=== PATIENT | female | born 1960 | race Native Hawaiian/Other Pacific Islander ===

== ENCOUNTER 2018-10-15 16:14 | Observation (INO) | payer MEDICAID ==
--- NOTE | 2018-10-15 17:10 | C.PDOC ---
History Of Present Illness 58 year old female with PMHx of hypertension and coronary stents presents to the ED complaining of chest pain for several months but worse for the past 3 weeks. Associated symptoms include shortness of breath. Describes pain as sharp. Reports she took Aspirin today. States she ran out of her medications 2 days ago. Time Seen by Provider: 10/15/18 16:46 Chief Complaint (Nursing): Chest Pain History Per: Patient History/Exam Limitations: no limitations Onset/Duration Of Symptoms: Days Current Symptoms Are (Timing): Still Present Quality: Sharp Past Medical History Reviewed: Historical Data, Nursing Documentation, Vital Signs Vital Signs: Last Vital Signs Temp 98.1 F 10/15/18 16:27 Pulse 76 10/15/18 16:27 Resp 16 10/15/18 16:27 BP 144/82 10/15/18 16:27 Pulse Ox 98 10/15/18 16:27 - Medical History PMH: HTN Surgical History: Coronary Stent Family History: States: No Known Family Hx - Social History Hx Alcohol Use: No Hx Substance Use: No - Immunization History Hx Tetanus Toxoid Vaccination: No Review Of Systems Except As Marked, All Systems Reviewed And Found Negative. Cardiovascular: Positive for: Chest Pain Respiratory: Positive for: Shortness of Breath Physical Exam - Physical Exam Appears: Non-toxic, No Acute Distress Skin: Warm, Dry, No Rash Head: Normacephalic Eye(s): bilateral: Normal Inspection, PERRL, EOMI Neck: Supple Cardiovascular: Rhythm Regular Respiratory: Normal Breath Sounds, No Rales, No Rhonchi, No Wheezing Gastrointestinal/Abdominal: Soft, No Tenderness Extremity: No Pedal Edema Extremity: Bilateral: Atraumatic, Normal Color And Temperature, Normal ROM Neurological/Psych: Oriented x3, Normal Speech ED Course And Treatment - Laboratory Results Result Diagrams: 10/15/18 17:06 10/15/18 17:06 ECG: Interpreted By Me, Viewed By Me ECG Rhythm: Sinus Rhythm Interpretation Of ECG: Normal axis, Normal intervals, No ST/T wave abnormalities Rate From EC O2 Sat by Pulse Oximetry: 98 (RA) Pulse Ox Interpretation: Normal - Other Rad CXR X-Ray: Viewed By Me, Read By Radiologist Interpretation: Accession No. : [id number]. Patient Name / ID : SUMIT FERRERA / [id number]. Exam Date : 10/15/2018 17:14:24 ( Approved ). Study Comment : Sex / Age : F / 58Y. Creator : Claudette Gaxiola MD. Dictator : Claudette Gaxiola MD. Car Barn Laborer : Wet End Tester : Claudette Gaxiola MD. Approver2 : Report Date : 10/15/2018 17:46:32. My Comment : . HISTORY: SOB. COMPARISON: None available. TECHNIQUE: Chest, one view. FINDINGS: LUNGS: No focal consolidation. Please note that chest x-ray has limited sensitivity for the detection of pulmonary masses. PLEURA: No significant pleural effusion identified. No definite pneumothorax . CARDIOVASCULAR: Heart size appears within normal limits. No significant atherosclerotic calcification present. OSSEOUS STRUCTURES: No acute osseous abnormality identified. VISUALIZED UPPER ABDOMEN: Unremarkable. OTHER FINDINGS: None. IMPRESSION: No focal consolidation identified. Medical Decision Making Medical Decision Making: Assessment: chest pain Plan: - EKG - CXR - Bloodwork Reassessment: Disposition Discussed With DrMeche: Erik Burkett Doctor Will See Patient In The: Hospital Counseled Patient/Family Regarding: Studies Performed, Diagnosis - Disposition Disposition: HOSPITALIZED Disposition Time: 18:26 Condition: FAIR Forms: [facility] (Spanish) - Clinical Impression Clinical Impression: Chest pain - Scribe Statement The provider has reviewed the documentation as recorded by the Scribe Daniela Heath All medical record entries made by the Scribe were at my direction and personally dictated by me. I have reviewed the chart and agree that the record accurately reflects my personal performance of the history, physical exam, medical decision making, and the department course for this patient. I have also personally directed, reviewed, and agree with the discharge instructions and disposition.
[2018-10-15 17:14] LABS: BASO # 0.1 K/uL (0.0-0.2); BASO % 0.8 % (0.0-2.0); EOS # 0.2 K/uL (0.0-0.7); EOS % 2.1 % (0.0-4.0); LYMPH # 3.8 K/uL (1.0-4.3); LYMPH % 51.7 % (20.0-40.0); MEAN CELL VOLUME 90.5 fL (81.0-99.0); MEAN CORPUSCULAR HGB CONC 33.2 g/dL (33.0-37.0); MONO # 0.4 K/uL (0.0-0.8); MONO % 5.9 % (0.0-10.0); NEUT # 2.9 K/uL (1.8-7.0); NEUT % 39.5 % (50.0-75.0); RBC 4.65 Mil/uL (3.80-5.20); RED CELL DISTRIBUTION WIDTH 13.5 % (11.5-14.5); WHITE BLOOD COUNT 7.3 K/uL (4.8-10.8)
[2018-10-15 17:22] LABS: ALB/GLOB RATIO 1.4 (1.0-2.1); ALBUMIN 4.7 g/dL (3.5-5.0); ALT/SGPT 31 U/L (9-52); AST/SGOT 29 U/L (14-36); BLOOD UREA NITROGEN 13 mg/dL (7-17); CALCIUM 9.3 mg/dl (8.6-10.4); GFR NON-AFRICAN AMERICAN > 60
[2018-10-15 17:34] LABS: B-TYPE NATRIURETIC PEPTIDE 36.8 pg/mL (0-900)
--- NOTE | 2018-10-15 17:50 | RAD ---
HISTORY: SOB COMPARISON: None available. TECHNIQUE: Chest, one view. FINDINGS: LUNGS: No focal consolidation. Please note that chest x-ray has limited sensitivity for the detection of pulmonary masses. PLEURA: No significant pleural effusion identified. No definite pneumothorax . CARDIOVASCULAR: Heart size appears within normal limits. No significant atherosclerotic calcification present. OSSEOUS STRUCTURES: No acute osseous abnormality identified. VISUALIZED UPPER ABDOMEN: Unremarkable. OTHER FINDINGS: None. IMPRESSION: No focal consolidation identified.
--- NOTE | 2018-10-15 19:35 | CP.PCM.HP ---
History of Present Illness - History of Present Illness History of Present Illness: 58 year old female with PMHx of hypertension and coronary stents presents to the ED complaining of chest pain for several months but worse for the past 3 weeks. Associated symptoms include shortness of breath. Describes pain as sharp. Reports she took Aspirin today. States she ran out of her medications 2 days ago. Present on Admission - Present on Admission Any Indicators Present on Admission: No Review of Systems - Review of Systems All systems: reviewed and no additional remarkable complaints except (chest pain) Past Patient History - Past Social History Smoking Status: Never Smoked - CARDIAC Hx Hypertension: Yes - PSYCHIATRIC Hx Substance Use: No - SURGICAL HISTORY Hx Coronary Stent: Yes Meds Allergies/Adverse Reactions: Allergies Allergy/AdvReac Type Severity Reaction Status Date / Time aspirin Allergy Mild RASH Verified 10/15/18 16:26 Physical Exam - Constitutional Appears: Well - Head Exam Head Exam: ATRAUMATIC, NORMAL INSPECTION, NORMOCEPHALIC - Eye Exam Eye Exam: EOMI, Normal appearance, PERRL - ENT Exam ENT Exam: Mucous Membranes Moist, Normal Exam - Neck Exam Neck exam: Positive for: Normal Inspection - Respiratory Exam Respiratory Exam: Clear to Auscultation Bilateral, NORMAL BREATHING PATTERN - Cardiovascular Exam Cardiovascular Exam: REGULAR RHYTHM - GI/Abdominal Exam GI & Abdominal Exam: Normal Bowel Sounds, Soft. absent: Tenderness Results - Vital Signs Recent Vital Signs: Last Vital Signs Temp 99.5 F 10/15/18 19:09 Pulse 83 10/15/18 19:09 Resp 18 10/15/18 19:09 BP 129/68 10/15/18 19:09 Pulse Ox 96 10/15/18 19:09 - Labs Result Diagrams: 10/15/18 17:06 10/15/18 17:06 Labs: Laboratory Results - last 24 hr 10/15/18 10/15/18 17:06 17:06 WBC 7.3 RBC 4.65 Hgb 14.0 Hct 42.1 MCV 90.5 MCH 30.0 MCHC 33.2 RDW 13.5 Plt Count 347 MPV 8.0 Neut % (Auto) 39.5 L Lymph % (Auto) 51.7 H [place] % (Auto) 5.9 Eos % (Auto) 2.1 Baso % (Auto) 0.8 Neut # (Auto) 2.9 Lymph # (Auto) 3.8 [place] # (Auto) 0.4 Eos # (Auto) 0.2 Baso # (Auto) 0.1 Sodium 139 Potassium 3.9 Chloride 104 Carbon Dioxide 25 Anion Gap 14 BUN 13 Creatinine 0.7 Est GFR ( Amer) > 60 Est GFR (Non-Af Amer) > 60 Random Glucose 72 Calcium 9.3 Total Bilirubin 0.4 AST 29 ALT 31 Alkaline Phosphatase 103 Troponin I < 0.0120 NT-Pro-B Natriuret Pep 36.8 Total Protein 8.1 Albumin 4.7 Globulin 3.4 Albumin/Globulin Ratio 1.4 Assessment & Plan (1) Chest pain due to coronary artery disease Status: Acute (2) 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
[2018-10-16 03:20] LABS: CK-MB 0.33 ng/mL (0.0-3.38)
[2018-10-16] MEDS: Enoxaparin 40 mg Syringe SC SCH (09:10)
--- NOTE | 2018-10-16 14:01 | CP.PCM.PN ---
Subjective - Date & Time of Evaluation Date of Evaluation: 10/16/18 Time of Evaluation: 14:00 - Subjective Subjective: No further chest pain Physical exam remains same with normal vital signs 2 sets of cardiac enzymes are negative Echo pending Objective - Vital Signs/Intake and Output Vital Signs (last 24 hours): Temp Pulse Resp BP Pulse Ox 97.7 F 80 18 115/71 97 10/16/18 07:00 10/16/18 08:00 10/16/18 07:00 10/16/18 07:00 10/15/18 23:15 - Medications Medications: Current Medications Clopidogrel Bisulfate (Plavix) 75 mg PO DAILY [facility] Last Admin: 10/16/18 09:10 Dose: 75 mg Enoxaparin Sodium (Lovenox) 40 mg SC DAILY [facility] Last Admin: 10/16/18 09:10 Dose: 40 mg Influenza Virus Vaccine (Fluzone Quad [id number]) 60 mcg IM .ONCE ONE Stop: 10/18/18 11:01 Losartan Potassium (Cozaar) 25 mg PO DAILY [facility] Last Admin: 10/16/18 09:10 Dose: 25 mg Pneumococcal Polyvalent Vaccine (Pneumovax 23 Vaccine) 0.5 ml IM .ONCE ONE Stop: 10/18/18 14:01 Rosuvastatin Calcium (Crestor) 20 mg PO HS [facility] Last Admin: 10/15/18 21:14 Dose: 20 mg - Labs Labs: 10/15/18 17:06 10/15/18 17:06 Assessment and Plan (1) Chest pain due to coronary artery disease Status: Acute (2) 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
[2018-10-16 16:04] LABS: CK-MB 0.25 ng/mL (0.0-3.38)
[2018-10-16 16:55] VITALS: RESP 20
--- NOTE | 2018-10-16 22:32 | CARD ---
APPROVED REPORT Date of service: 10/15/2018 EKG Measurement Heart [id number] <Conclusion> Normal sinus rhythm Low voltage QRS Borderline ECG
--- NOTE | 2018-10-16 22:51 | CARD ---
APPROVED REPORT Date of service: 10/16/2018 EXAM: Two-dimensional and M-mode echocardiogram with Doppler and color Doppler. INDICATION Dyspnea Chest Pain coronary stent RISK FACTORS Hypertension 2D DIMENSIONS IVSd0.6 (0.7-1.1cm)LVDd4.6 (3.9-5.9cm) PWd0.8 (0.7-1.1cm)LA Uegqxa48 (18-58mL) LVDs2.9 (2.5-4.0cm)FS (%) 37.0 % LVEF (%)67.0 (>50%)LVEF (Kang's)69.83 % IVC0.00 cm M-Mode DIMENSIONS RVDd1.79 (2.1-3.2cm)Left Atrium (MM)3.24 (2.5-4.0cm) IVSd0.66 (0.7-1.1cm)Aortic Root2.62 (2.2-3.7cm) LVDd4.95 (4.0-5.6cm)Aortic Cusp Exc.1.67 (1.5-2.0cm) PWd0.73 (0.7-1.1cm)FS (%) 36 % LVDs3.16 (2.0-3.8cm)LVEF (%)66 (>50%) Mitral Valve MV E Lpoqxlmj57.3cm/sMV A Tqcnacgh28.0cm/sE/A ratio0.9 EKNI460.82 cm/s TDI Lateral E' Peak V6.67cm/sMedial E' Peak V6.87cm/sE/Lateral E'8.7 E/Medial E'8.5 Tricuspid Valve TR Peak Dybcrloi376om/sTR Peak Gr.68vyIeKWLN77laCn LEFT VENTRICLE The left ventricle is normal size. There is normal left ventricular wall thickness. Left ventricle systolic function is normal. The Ejection Fraction is 65-70%. There is normal LV segmental wall motion. The left ventricular diastolic function is abnormal. Transmitral Doppler flow pattern is Grade I-abnormal relaxation pattern. No left ventricle thrombus noted on this study. RIGHT VENTRICLE The right ventricle is normal size. The right ventricular systolic function is normal. ATRIA The left atrium size is normal. The right atrium size is normal. AORTIC VALVE The aortic valve is mildly sclerotic. The aortic valve is trileaflet. No aortic regurgitation is present. There is no aortic valvular stenosis. There is no aortic valvular vegetation. MITRAL VALVE Mitral annular calcification is mild. There is no evidence of mitral valve prolapse. There is no mitral valve stenosis. Mitral regurgitation is mild. TRICUSPID VALVE The tricuspid valve is normal in structure. There is trace to mild tricuspid regurgitation. Right ventricular systolic pressure is estimated at less than 30 mmHg. There is no pulmonary hypertension. There is no tricuspid valve prolapse or vegetation. There is no tricuspid valve stenosis. PULMONIC VALVE The pulmonic valve is not well visualized. There is no pulmonic valvular regurgitation. There is no pulmonic valvular stenosis. GREAT VESSELS The aortic root is normal in size. The IVC is normal in size and collapses >50% with inspiration. PERICARDIAL EFFUSION There is no pericardial effusion. There is no pleural effusion. <Conclusion> The left ventricle is normal size. Left ventricle systolic function is normal. The Ejection Fraction is 65-70%. The left ventricular diastolic function is abnormal. Transmitral Doppler flow pattern is Grade I-abnormal relaxation pattern. The right ventricle is normal size. The right ventricular systolic function is normal. The left atrium size is normal. The right atrium size is normal. Mitral regurgitation is mild. There is trace to mild tricuspid regurgitation.
[2018-10-17 07:59] VITALS: O2SAT 95
[2018-10-17] MEDS: Enoxaparin 40 mg Syringe SC SCH (10:13)
--- NOTE | 2018-10-17 13:37 | CP.PCM.DIS ---
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 Hospital Course - Lab Results Lab Results: Most Recent Lab Values WBC 7.3 K/uL (4.8-10.8) 10/15/18 17:06 RBC 4.65 Mil/uL (3.80-5.20) 10/15/18 17:06 Hgb 14.0 g/dL (11.0-16.0) 10/15/18 17:06 Hct 42.1 % (34.0-47.0) 10/15/18 17:06 MCV 90.5 fL (81.0-99.0) 10/15/18 17:06 MCH 30.0 pg (27.0-31.0) 10/15/18 17:06 MCHC 33.2 g/dL (33.0-37.0) 10/15/18 17:06 RDW 13.5 % (11.5-14.5) 10/15/18 17:06 Plt Count 347 K/uL (130-400) 10/15/18 17:06 MPV 8.0 fL (7.2-11.7) 10/15/18 17:06 Neut % (Auto) 39.5 % (50.0-75.0) L 10/15/18 17:06 Lymph % (Auto) 51.7 % (20.0-40.0) H 10/15/18 17:06 [place] % (Auto) 5.9 % (0.0-10.0) 10/15/18 17:06 Eos % (Auto) 2.1 % (0.0-4.0) 10/15/18 17:06 Baso % (Auto) 0.8 % (0.0-2.0) 10/15/18 17:06 Neut # (Auto) 2.9 K/uL (1.8-7.0) 10/15/18 17:06 Lymph # (Auto) 3.8 K/uL (1.0-4.3) 10/15/18 17:06 [place] # (Auto) 0.4 K/uL (0.0-0.8) 10/15/18 17:06 Eos # (Auto) 0.2 K/uL (0.0-0.7) 10/15/18 17:06 Baso # (Auto) 0.1 K/uL (0.0-0.2) 10/15/18 17:06 Sodium 139 mmol/L (132-148) 10/15/18 17:06 Potassium 3.9 mmol/L (3.6-5.2) 10/15/18 17:06 Chloride 104 mmol/L (98-107) 10/15/18 17:06 Carbon Dioxide 25 mmol/L (22-30) 10/15/18 17:06 Anion Gap 14 (10-20) 10/15/18 17:06 BUN 13 mg/dL (7-17) 10/15/18 17:06 Creatinine 0.7 mg/dL (0.7-1.2) 10/15/18 17:06 Est GFR ( Amer) > 60 10/15/18 17:06 Est GFR (Non-Af Amer) > 60 10/15/18 17:06 Random Glucose 72 mg/dL (65-105) 10/15/18 17:06 Calcium 9.3 mg/dl (8.6-10.4) 10/15/18 17:06 Total Bilirubin 0.4 mg/dL (0.2-1.3) 10/15/18 17:06 AST 29 U/L (14-36) 10/15/18 17:06 ALT 31 U/L (9-52) 10/15/18 17:06 Alkaline Phosphatase 103 U/L (38-126) 10/15/18 17:06 Total Creatine Kinase 50 U/L (30-135) 10/16/18 14:03 CK-MB (Mass) 0.25 ng/mL (0.0-3.38) 10/16/18 14:03 Troponin I < 0.0120 ng/mL (0.00-0.120) 10/16/18 14:03 NT-Pro-B Natriuret Pep 36.8 pg/mL (0-900) 10/15/18 17:06 Total Protein 8.1 g/dL (6.3-8.3) 10/15/18 17:06 Albumin 4.7 g/dL (3.5-5.0) 10/15/18 17:06 Globulin 3.4 gm/dL (2.2-3.9) 10/15/18 17:06 Albumin/Globulin Ratio 1.4 (1.0-2.1) 10/15/18 17:06 - Hospital Course Hospital Course: 58 year old female with PMHx of hypertension and coronary stents presents to the ED complaining of chest pain for several months but worse for the past 3 weeks. Associated symptoms include shortness of breath. Describes pain as sharp. Reports she took Aspirin today. States she ran out of her medications 2 days ago. Serial cardiac enzymes were negative. EKG showed no acute ST-T changes. Echocardiogram showed no wall motion abnormality. Patient had a stress echo done in [address] [facility]. The report shows no evidence of any inducible ischemia or wall motion noted on exercise. 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 Discharge Exam - Head Exam Head Exam: ATRAUMATIC, NORMAL INSPECTION, NORMOCEPHALIC Discharge Plan - Follow Up Plan Condition: FAIR Disposition: HOME/ ROUTINE
[2018-10-17 16:37] VITALS: BP 121/75; PULSE 77; TEMP 98
--- NOTE | 2018-10-17 19:15 | CARD ---
APPROVED REPORT Date of service: 10/16/2018 EKG Measurement Heart [id number] <Conclusion> Normal sinus rhythm Normal ECG
[2018-10-18] MEDS ORDERED: Influenza Vaccine 60 MCG/0.5 ML SYR (3 yr & up) IM ONE (11:00)
[2018-10-18] MEDS ORDERED: Influenza Virus Vaccine 45 mcg/0.5 ml Syr (36 months - 7 yrs) IM ONE (14:00)
[2018-10-18] MEDS ORDERED: Pneumococcal 23-Valent Vaccine IM ONE (14:00)
== END 2018-10-17 16:15 | disposition home or self-care (01) ==
LOC: C.ER 16:14 → C.9E 18:26 → C.6T 19:22
PROVIDERS: ADMIT Internal Medicine Cardiovascular Disease; ATTEND Internal Medicine Cardiovascular Disease
DX: R07.9 Chest pain, unspecified (principal); I25.10 Atherosclerotic heart disease of native coronary artery without angina pectoris; I10 Essential (primary) hypertension; Z95.5 Presence of coronary angioplasty implant and graft
CPT/HCPCS: 36415; 71045; 80053; 83880; 84484; 85025; 93005; 93306; 96366; 96372; 99285; G0378; J1650